=== PATIENT | female | born 1950 | race Caucasian/White ===

== ENCOUNTER 2020-08-02 07:48 | Outpatient (CLI) | payer MEDICARE, SELFPAY ==
--- NOTE | 2020-08-02 07:57 | USCV_ITS ---
uY Bruce Age: 70 Gender: F : 1950 Exam Date: 08/02/2020 08:12 Ordering Phys: Elicia Pink APN Technologist: Moira Philippe Exam Location: [facility] [place] Indication: BRUIT ON LT Risk Factors: Unknown Previous Vascular Surgery: None Right Brachial BP: / Left Brachial BP: / Right Left Velocity (cm/s) Spectral Plaque Velocity (cm/s) Spectral Plaque Syst/Diast Broadening Syst/Diast Broadening 55.50/ 16.80 Prox CCA 75.00 / 17.60 50.90/ 12.90 Mid CCA 49.30 / 10.50 50.90/ 14.60 Distal CCA 56.50 / 14.50 27.30/ 11.70 Prox ICA 59.80 / 11.80 48.30/ 13.30 Mid ICA 63.80 / 23.00 49.50/ 13.30 Distal ICA 57.20 / 15.10 39.90 ECA 67.00 0.97 ICA/CCA 1.29 Antegrade Vertebral Antegrade 44.70/ 12.70 cm/s 23.70/ 6.60 cm/s Tri Subclavian Tri 64.70 115.8 0 FINDINGS Minimal plaques at the bifurcations bilaterally Intimal thickening in the common carotid arteries bilaterally Antegrade flow in the vertebral arteries bilaterally Normal Doppler flow signals in the subclavian arteries bilaterally CONCLUSIONS Minimal plaques bilaterally at the bifurcations and proximal internal carotid arteries Intimal thickening in the common carotid arteries bilaterally. No significant stenosis, based on the above findings Dr Lobito Jones MD FAC (Electronically Signed) Final Date: 02 August 2020 14:54 S
--- NOTE | 2020-08-02 08:11 | USCV_ITS ---
Yu Bruce Age: 70 Gender: F : 1950 Exam Date: 08/02/2020 08:38 Ordering Phys: Elicia Pink APN Technologist: Moira Philippe Exam Location: [facility] [place] Indication: MV REPAIR BP: 123 / 74 HR: 62 Rhythm: Sinus Technical Quality: Adequate MEASUREMENTS (Male / Female) Normal Values 2D ECHO LV Diastolic Diameter PLAX 4.4 cm 4.2 - 5.9 / 3.9 - 5.3 cm LV Systolic Diameter PLAX 3.6 cm LV Chamber Size 4.2 cm IVS Diastolic Thickness 1.2 cm 0.6 - 1.0 / 0.6 - 0.9 cm IVS Systolic Thickness 1.4 cm LVPW Diastolic Thickness 1.3 cm 0.6 - 1.0 / 0.6 - 0.9 cm LVPW Systolic Thickness 1.6 cm RV Chamber Size 3.4 cm LVOT Diameter 3.0 cm LV Ejection Fraction 2D Teich 38.0 % LV Ejection Fraction MOD 2C 67.4 % LV Ejection Fraction 2C AL 66.7 % LA Diameter 3.3 cm LA Width 3.7 cm LA Height 5.5 cm RA Width 5.1 cm RA Height 5.0 cm Aorta at Sinotubular Diameter 3.1 cm M-MODE LV Diastolic Diameter MM 3.8 cm 4.2 - 5.9 / 3.9 - 5.3 cm LV Systolic Diameter MM 2.4 cm LV Ejection Fraction MM Teich 67.7 % IVS Diastolic Thickness MM 0.8 cm 0.6 - 1.0 / 0.6 - 0.9 cm IVS Systolic Thickness MM 1.3 cm LVPW Diastolic Thickness MM 0.9 cm 0.6 - 1.0 / 0.6 - 0.9 cm LVPW Systolic Thickness MM 1.4 cm Aortic Annulus Diameter 3.0 cm LA Ao Ratio MM 1.2 MV E Point Septal Separation 0.9 cm DOPPLER AV Peak Velocity 182.0 cm/s LVOT Peak Velocity 66.0 cm/s AV Area Cont Eq vti 3.5 cm squared AV Area Cont Eq pk 2.6 cm squared MV Area PHT 3.1 cm squared Mitral E to A Ratio 2.2 MV E' Velocity 100.5 cm/s Mitral E to MV E' Ratio 17.8 Mitral E to LV E' Lateral Ratio 14.6 Mitral E to LV E' Septal Ratio 22.9 TR Peak Velocity 365.0 cm/s TR Peak Gradient 53.3 mmHg TR Mean Velocity 242.3 cm/s TR Mean Gradient 27.6 mmHg TR Velocity Time Integral 140.5 cm TV Peak E Velocity 77.0 cm/s Right Atrial Pressure 10.0 mmHg Pulmonary Artery Systolic Pressu 63.3 mmHg PV Peak Velocity 55.0 cm/s RV Acceleration Time 0.1 s RV Ejection Time 0.4 s RV AcT/ET 0.3 FINDINGS Left Ventricle Diffuse hypokinesis left ventricle with ejection fraction around 45-50%.Grade III/IV diastolic dysfunction (restrictive filling pattern), severely elevated filling pressures. Right Ventricle Normal right ventricular size and systolic function, RVSP 63.3 mmHg. Right Atrium Mildly increased right atrial size. Left Atrium Mildly increased left atrial size. Mitral Valve Possible mitral annular ring appears to be well placed. Minimally thickened mitral valve.mild mitral valve regurgitation. Aortic Valve Thickened aortic valve. Trace aortic valve regurgitation. Tricuspid Valve [id number]-[id number]-waepow tricuspid valve regurgitation. Estimated pulmonary artery peak systolic pressure of 63 mmHg. Pulmonic Valve Pulmonic valve not well visualized. Pericardium Normal pericardium without effusion. Aorta Normal aortic annulus size. CONCLUSIONS Diffuse hypokinesis left ventricle with ejection fraction around 45-50%. Grade III/IV diastolic dysfunction (restrictive filling pattern), severely elevated filling pressures. Mild biatrial enlargement. Possible mitral annular ring appears to be well placed. Minimally thickened mitral valve. [id number]-lorvea tricuspid valve regurgitation. Estimated pulmonary artery peak systolic pressure of 63 mmHg. Mild mitral valve regurgitation. There is no pericardial effusion. There are no intracardiac masses. There is no pericardial effusion. There are no intracardiac masses. No previous study is available for comparison. Dr Lobito Jones MD [facility] (Electronically Signed) Final Date: 02 August 2020 14:49 S
== END 2020-08-02 07:49 | disposition home or self-care (01) ==
LOC: US 07:50
PROVIDERS: PCP Nurse Practitioner; Visit Provider Nurse Practitioner
DX: R09.89 Other specified symptoms and signs involving the circulatory and respiratory systems (principal); I08.1 Rheumatic disorders of both mitral and tricuspid valves; I65.23 Occlusion and stenosis of bilateral carotid arteries
CPT/HCPCS: 93306; 93880

== ENCOUNTER → 2020-08-07 15:26 | Outpatient (BNVA) | payer MEDICARE, SELFPAY | PROVIDERS: PCP Nurse Practitioner; Referring Provider Nurse Practitioner; Visit Provider Internal Medicine Cardiovascular Disease | DX: I50.33 Acute on chronic diastolic (congestive) heart failure (principal); R06.02 Shortness of breath; I27.20 Pulmonary hypertension, unspecified | CPT/HCPCS: 80048; 83880 ==

== ENCOUNTER 2020-11-12 09:52 | Outpatient (CLI) | payer MEDICARE, SELFPAY ==
--- NOTE | 2020-11-12 10:01 | USCV_ITS ---
Yu Bruce Age: 70 Gender: F : 1950 Exam Date: 11/12/2020 10:12 Ordering Phys: Lobito Jones MD ([email or web address]) Technologist: Chelsie Sanches Exam Location: [facility] – [place] Indication: PULMONARY HYPERTENSION HISTORY: Lower extremity swelling. PROCEDURES: Venous duplex imaging was performed in bilateral lower extremities. The following venous structures were evaluated: common femoral vein, profunda vein, proximal portion of the greater saphenous vein, superficial femoral vein, and the popliteal vein. In addition, the posterior tibial and peroneal trunk were evaluated. Serial compression, augmentation maneuvers, and spectral Doppler flow evaluation were performed. FINDINGS: Normal 2-D Doppler and augmentation and compressibility throughout the lower extremity venous structures. Additional imaging through the proximal calf veins also reveals no thrombus. Limited evaluation of the greater saphenous vein is patent with no thrombus.. Complex cystic mass with low level echos and no vascularity measuring 3.8 x 1.6 cm in the right popliteal fossa. CONCLUSIONS No DVT bilateral lower extremities. Right popliteal fossa Paniagua's cyst. Dr. Melissa Levine DO (Electronically Signed) Final Date: 12 Nov 2020 11:34 S
== END 2020-11-12 09:53 | disposition home or self-care (01) ==
LOC: RAD 09:54
PROVIDERS: PCP Nurse Practitioner; Visit Provider Internal Medicine Cardiovascular Disease
DX: I27.20 Pulmonary hypertension, unspecified (principal); M79.89 Other specified soft tissue disorders; M71.21 Synovial cyst of popliteal space [Baker], right knee
CPT/HCPCS: 85378; 93970

== ENCOUNTER 2020-11-13 09:39 | Outpatient (CLI) | payer MEDICARE, SELFPAY ==
[2020-11-13 10:34] LABS: D Dimer 2.25 ug/mIFEU (0-0.59)
== END 2020-11-13 09:40 | disposition home or self-care (01) ==
PROVIDERS: PCP Nurse Practitioner; Visit Provider Internal Medicine Cardiovascular Disease
DX: I82.409 Acute embolism and thrombosis of unspecified deep veins of unspecified lower extremity (principal)
CPT/HCPCS: 85378

== ENCOUNTER 2020-11-25 09:24 | Outpatient (CLI) | payer MEDICARE, SELFPAY ==
--- NOTE | 2020-11-25 08:00 | NM_ITS ---
WS: [id number] NUCLEAR MEDICINE VENTILATION/PERFUSION LUNG SCAN HISTORY: I26.99 - Other pulmonary embolism without acute cor pulmonale COMPARISON: Chest radiograph TECHNIQUE: Ventilation: 31.7 mCi of Technetium 99 DTPA aerosol inhaled. Perfusion: 5.5 mCi of technetium 99m MAA IV. Mild deposition of radionuclide centrally. Lungs are hyperexpanded with heterogeneous distribution th roughout both lungs. There is also radionuclide within the GI tract. Much better perfusion as compare d to the ventilation. Heart is enlarged. Blunting of the costophrenic angles bilaterally, matched def ects. There are no unmatched wedge-shaped defects. NM/NM pul vent and perfus* [id number] IMPRESSION: Low probability pulmonary embolism.
--- NOTE | 2020-11-25 09:43 | XR_ITS ---
WS: [id number] Exam: XR chest 2V* [id number] Date/Time of Exam: 11/25/2020 10:12 AM Reason For Exam: R79.89 - Other specified abnormal findings of blood chemi... Comparison 10/14/2012. The lungs are clear and fully inflated. Signs of previous cardiac valve replacement. Epicardial lead noted along the left heart border. No pleural effusions. Heart size is normal. The mediastinum is not widened. Dextroscoliosis of the thoracic spine. Increased thoracic kyphosis. XR/XR chest 2V* [id number] IMPRESSION: 1. No acute cardiopulmonary finding.
== END 2020-11-25 09:25 | disposition home or self-care (01) ==
PROVIDERS: PCP Nurse Practitioner; Visit Provider Internal Medicine Cardiovascular Disease
DX: I26.99 Other pulmonary embolism without acute cor pulmonale (principal); R79.89 Other specified abnormal findings of blood chemistry; R06.02 Shortness of breath
CPT/HCPCS: 71046; 78014; A9540; A9567

== ENCOUNTER → 2021-10-06 13:34 | Outpatient (BNVA) | payer MEDICARE, SELFPAY | PROVIDERS: PCP Nurse Practitioner; Visit Provider Internal Medicine Cardiovascular Disease | DX: I50.33 Acute on chronic diastolic (congestive) heart failure (principal); I27.20 Pulmonary hypertension, unspecified; I42.8 Other cardiomyopathies | CPT/HCPCS: 99214 ==

== ENCOUNTER 2022-01-06 11:23 | Outpatient (CLI) | payer MEDICARE, SELFPAY ==
--- NOTE | 2022-01-06 12:00 | USCV_ITS ---
Yu Bruce Age: 71 Gender: F : 1950 Exam Date: 01/06/2022 11:57 Ordering Phys: Lobito Jones MD ([email or web address]) Technologist: LISBETH [place]am Location[place] [facility] [place] Indication: Bruit Risk Factors: Previous Vascular Surgery: Right Brachial BP: / Left Brachial BP: / Right Left Velocity (cm/s) Spectral Plaque Velocity (cm/s) Spectral Plaque Syst/Diast Broadening Syst/Diast Broadening 76.90/ 19.70 Prox CCA 77.60 / 21.00 100.00/29.10 Mid CCA 94.00 / 22.20 79.50/ 26.50 Distal CCA 79.50 / 24.80 72.65/ 17.05 Prox ICA 78.65 / 18.40 61.50/ 23.10 Mid ICA 64.90 / 24.80 53.80/ 20.50 Distal ICA 72.60 / 24.80 105.10 ECA 101.70 0.64 ICA/CCA 0.83 Antegrade Vertebral Antegrade 30.40/ 12.30 cm/s 48.70/ 17.90 cm/s Tri Subclavian Tri 68.40 94.00 FINDINGS Comparison:. 08/02/20 No significant elevation of systolic or diastolic velocities. Waveforms are normal. Mild diffuse carotid atherosclerosis. No progression of disease. Bilateral antegrade vertebral arteries. CONCLUSIONS Bilateral ICA stenosis less than 50%. Mild carotid atherosclerosis. Dr. Melissa Levine DO (Electronically Signed) Final Date: 06 January 2022 14:22 S
== END 2022-01-06 11:24 | disposition home or self-care (01) ==
PROVIDERS: PCP Nurse Practitioner; Visit Provider Internal Medicine Cardiovascular Disease
DX: I77.9 Disorder of arteries and arterioles, unspecified (principal); R09.89 Other specified symptoms and signs involving the circulatory and respiratory systems
CPT/HCPCS: 93880

== ENCOUNTER → 2022-04-01 16:34 | Outpatient (BNVA) | payer MEDICARE, SELFPAY | PROVIDERS: PCP Nurse Practitioner Family; Visit Provider Internal Medicine Cardiovascular Disease | DX: R06.02 Shortness of breath (principal); I10 Essential (primary) hypertension; I42.8 Other cardiomyopathies; I36.1 Nonrheumatic tricuspid (valve) insufficiency; I27.20 Pulmonary hypertension, unspecified; Z98.890 Other specified postprocedural states | CPT/HCPCS: 80048; 83880; 99214 ==

== ENCOUNTER → 2022-10-01 13:38 | Outpatient (BNVA) | payer MEDICARE, SELFPAY | PROVIDERS: PCP Nurse Practitioner Family; Visit Provider Internal Medicine Cardiovascular Disease | DX: R06.02 Shortness of breath (principal); I10 Essential (primary) hypertension; I42.8 Other cardiomyopathies; I36.1 Nonrheumatic tricuspid (valve) insufficiency; I27.20 Pulmonary hypertension, unspecified; Z98.890 Other specified postprocedural states | CPT/HCPCS: 80048; 83880; 99214 ==

== ENCOUNTER 2022-10-23 06:27 | Outpatient (CLI) | payer MEDICARE, SELFPAY ==
--- NOTE | 2022-10-23 07:15 | USCV_ITS ---
Yu Bruce Age: 72 Gender: F : 1950 Exam Date: 10/23/2022 07:09 Ordering Phys: Lobito Jones MD ([email or web address]) Technologist: [email or web address] [place] [facility] [place] Indication: TR/CM BP: 131 / 79 HR: 71 Rhythm: Sinus Technical Quality: Adequate MEASUREMENTS (Male / Female) Normal Values 2D ECHO LVOT Diameter 2.0 cm LV Ejection Fraction MOD 2C 52.6 % LV Ejection Fraction 2C AL 55.6 % LA Diameter 3.3 cm LA Width 4.3 cm LA Height 4.9 cm RA Width 4.2 cm RA Height 3.8 cm Aorta at Sinotubular Diameter 2.1 cm IVC Diameter 1.5 cm M-MODE Aortic Annulus Diameter 2.9 cm LA Ao Ratio MM 0.9 MV E Point Septal Separation 1.4 cm DOPPLER AV Peak Velocity 151.7 cm/s LVOT Peak Velocity 103.0 cm/s AV Area Cont Eq vti 2.1 cm squared AV Area Cont Eq pk 2.1 cm squared MV Peak Velocity 151.0 cm/s MV Area PHT 2.9 cm squared Mitral E to A Ratio 1.0 MV E' Velocity 77.5 cm/s Mitral E to MV E' Ratio 16.8 Mitral E to LV E' Lateral Ratio 13.0 Mitral E to LV E' Septal Ratio 24.1 TR Peak Velocity 266.4 cm/s TR Peak Gradient 28.4 mmHg TR Mean Velocity 256.8 cm/s TR Mean Gradient 26.7 mmHg TR Velocity Time Integral 110.2 cm TV Peak E Velocity 39.0 cm/s Right Atrial Pressure 3.0 mmHg Pulmonary Artery Systolic Pressu 31.4 mmHg PV Peak Velocity 99.0 cm/s RV Acceleration Time 0.1 s RV Ejection Time 0.3 s RV AcT/ET 0.3 FINDINGS Left Ventricle Normal left ventricular size with borderline low LV ejection fraction of 50 to 55%. Mild diffuse hypokinesia of the septum. Dyskinetic basal inferior wall segment.Grade III/IV diastolic dysfunction (restrictive filling pattern), severely elevated filling pressures. Right Ventricle The right ventricle is normal in size and function. Right Atrium Normal right atrial size. Left Atrium Moderately increased left atrial size. Mitral Valve Moderate to heavy mitral annular calcification.mild mitral valve regurgitation. Aortic Valve Trace aortic valve regurgitation. Tricuspid Valve Mild tricuspid valve regurgitation. Estimated pulmonary artery peak systolic pressure 31 mmHg Pulmonic Valve Pulmonic valve not well visualized. Pericardium No pericardial effusion. Aorta Normal aortic annulus size. IVC Normal inferior vena cava. CONCLUSIONS Normal left ventricular size with slightly diminished ejection fraction of 50 to 55%. Mild diffuse hypokinesia of the septum. Dyskinetic basal inferior wall segment.Grade III/IV diastolic dysfunction (restrictive filling pattern), severely elevated filling pressures. Moderately increased left atrial size. Moderate to heavy mitral annular calcification.mild mitral valve regurgitation. Trace aortic valve regurgitation. Mild tricuspid valve regurgitation. There is no pericardial effusion. There are no intracardiac masses. Estimated pulmonary artery peak systolic pressure 31 mmHg. The PA pressure estimation could be misleading because of the poor Doppler signals. There is no pericardial effusion. There are no intracardiac masses. Compared to the previous study from 08/02/2020 there appears to be some improvement in the LV ejection fraction. Because of poor Doppler signals PA pressure could not be estimated properly. Dr Lobito Jones MD [facility] (Electronically Signed) Final Date: 24 October 2022 17:46 S
== END 2022-10-23 06:28 | disposition home or self-care (01) ==
LOC: RAD 06:32
PROVIDERS: PCP Nurse Practitioner Family; Visit Provider Internal Medicine Cardiovascular Disease
DX: I42.8 Other cardiomyopathies (principal); R06.09 Other forms of dyspnea; I51.9 Heart disease, unspecified; I08.1 Rheumatic disorders of both mitral and tricuspid valves
CPT/HCPCS: 80048; 83880; 93306; 99214

== ENCOUNTER 2022-11-03 07:49 | Outpatient (CLI) | payer MEDICARE, SELFPAY ==
--- NOTE | 2022-11-03 | ECG_ITS ---
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 Interpretive Statements NAME OF STUDY: LEXISCAN SESTAMIBI STRESS TEST INDICATION: Cardiomyopathy, PROCEDURE: At the baseline, the EKG revealed normal sinus rhythm with a left bundle branch block pattern. The baseline heart was 69 bpm with a blood pressue of 126/78 mm of Hg Lexiscan was infused over a period of 20 seconds. A total of 0.4 milligrams of Lexiscan was infused. The stress phase was continued for a total of 5 minutes. Heart rate at the end of the stress phase was 82 bpm with a blood pressure 147/75 mm of Hg. The EKG at the peak infusion revealed no significant changes. Sestamibi was injected 20 seconds after the Lexiscan infusion. Heart rate at the end of the recovery phase was 80 bpm with a blood pressure of 138/72 mm of Hg. CONCLUSION: 1. The EKG response to Lexiscan infusion is uninterpretable due to the underlying left bundle branch block pattern 2. No LexiScan induced chest pain or cardiac arrhythmia 3. Normal blood pressure and heart rate response 4. Sestamibi/sestamibi perfusion scan pending; see separate report. Electronically Signed On 11-05-2022 21:35:41 CDT by Lobito Jones M.D. [id number]
[2022-11-03 07:58] VITALS: BMI 42.0
--- NOTE | 2022-11-03 08:26 | NMCV_ITS ---
NM nicolasa perf SPECT r/s* [id number] Yu Bruce Age: 72 Gender: F : 1950 Exam Date: 11/03/2022 09:25 Ordering Phys: Lobito Jones MD ([email or web address]) Technologist: RIP Frank Exam Location: [facility] Indications: CORONARY ANGIOPLASTY STATUS; CARDIOMYOPATHY STRESS TEST Please see separate stress test report in [facility] for full findings IMAGE PROTOCOL Rest/Stress 1 Lexiscan Day Radiopharmaceutical Dose (mCi) Administration Site Administered by Rest: Tc-99m 11.0 IV RIP Frank Sestamibi Stress:Tc-99m 32.7 IV RIP Luo Sestamibi Rest: 03-Nov-2022 60 Discovery 630 Stress: 03-Nov-2022 30 Discovery 630 0.4mg Lexiscan. Images obtained in supine and prone position. SPECT RESULTS Technical Quality: Excellent Raw Data Analysis: Normal Image Corrections: No attenuation or motion correction applied Summed Stress Score: 1 Summed Rest Score: 8 Summed Difference Score: 1 PERFUSION FINDINGS Patchy areas of slightly decreased tracer uptake were noted in the inferior, mid and apical anterior wall and apical regions. Has a small area of reversible defect was noted in the apical inferior region FUNCTIONAL RESULTS (calculated via Gated SPECT) Stress Image LV EF (%): 47 Stress EDV (mL):118 TID: 0.99 Stress ESV (mL):62 FUNCTIONAL FINDINGS: Segmental wall motion analysis revealed diffuse hypokinesia of the septum and LV apex IMPRESSIONS 1. Myocardial perfusion imaging revealing patchy areas of slightly decreased persistent tracer uptake in the inferior wall, anterior wall and apical regions with a subtle area of reversibility in the apical inferior region, suggesting myocardial scarring in the distribution of all 3 coronary arteries with a subtle area of ischemia in the distribution of the distal RCA. 2. Slightly diminished left ventricular ejection fraction of 47%. 3. LV wall motion analysis revealing diffuse hypokinesia of the septum and LV apex. 4. Mildly dilated LV cavity with an end-systolic volume of 62 mL No similar previous studies are available for comparison Dr Lobito Jones MD [facility] (Electronically Signed) Final Date: 04 Nov 2022 00:38 S
[2022-11-03] MEDS: regadenoson 0.4 Mg/5 ml Syringe IVP (10:02)
[2022-11-03 10:21] VITALS: BP 138/72; PULSE 80
== END 2022-11-03 07:50 | disposition home or self-care (01) ==
LOC: CDL 07:58
PROVIDERS: PCP Nurse Practitioner Family; Visit Provider Internal Medicine Cardiovascular Disease
DX: I42.9 Cardiomyopathy, unspecified (principal)
CPT/HCPCS: 36415; 78452; 93017; 96374; A9500; J2785

== ENCOUNTER 2022-12-09 14:30 | Outpatient (CLI) | payer MEDICARE, OTHER, SELFPAY ==
--- NOTE | 2022-12-09 14:39 | MM_ITS ---
WS: [id number] BILATERAL 3D TOMOSYNTHESIS DIGITAL SCREENING MAMMOGRAPHY WITH CAD CLINICAL INFORMATION: SCREENING HISTORY: Screening mammogram. No current complaints. COMPARISON: 2006 TECHNIQUE: Bilateral CC and MLO views. FINDINGS: Scattered fibroglandular densities bilaterally. No suspicious focal mass, asymmetry, calcifications, or architectural distortion. No evidence of malignancy. Incidental punctate calcifications LEFT breas t. Vascular calcification. MM/[place] [id number] IMPRESSION: BI-RADS: 2-Benign FOLLOW UP: 1 Year Follow-up Recommend return to annual screening mammography.
--- NOTE | 2022-12-09 15:15 | XR_ITS ---
WS: [id number] DEXA (DUAL ENERGY X-RAY ABSORPTIOMETRY) Bone mineral density was performed using a [employer] machine. HISTORY: BONE DENSITY COMPARISON: None available. Lumbar spine BMD (L1-L4): 0.898 T score: -2.5 Z score: -2.0 Total hip BMD: Left: 0.602 g/cm2. T score: -3.2 Z score: -2.4 Right: 0.621 g/cm2. T score: -3.1 Z score: -2.3 10 year probability of a major osteoporotic fracture is 17.6%. XR/XR DEXA axial skeleton* [id number] IMPRESSION: OSTEOPOROSIS based upon the WHO classification for females.
== END 2022-12-09 14:31 | disposition home or self-care (01) ==
PROVIDERS: PCP Nurse Practitioner Family; Visit Provider Nurse Practitioner Family
DX: Z12.31 Encounter for screening mammogram for malignant neoplasm of breast (principal); Z78.0 Asymptomatic menopausal state; M81.0 Age-related osteoporosis without current pathological fracture
CPT/HCPCS: 77063; 77067; 77080

== ENCOUNTER → 2023-04-08 13:31 | Outpatient (BNVA) | payer MEDICARE, SELFPAY | PROVIDERS: PCP Nurse Practitioner Family; Visit Provider Internal Medicine Cardiovascular Disease | DX: I42.8 Other cardiomyopathies (principal); Z98.890 Other specified postprocedural states; I36.1 Nonrheumatic tricuspid (valve) insufficiency; I27.20 Pulmonary hypertension, unspecified; I13.0 Hypertensive heart and chronic kidney disease with heart failure and stage 1 through stage 4 chronic kidney disease, or unspecified chronic kidney disease; N18.9 Chronic kidney disease, unspecified; I50.9 Heart failure, unspecified | CPT/HCPCS: 99214 ==

== ENCOUNTER → 2023-11-01 13:52 | Outpatient (BNVA) | payer MEDICARE, SELFPAY | PROVIDERS: PCP Nurse Practitioner Family; Visit Provider Internal Medicine Cardiovascular Disease | DX: Z98.890 Other specified postprocedural states (principal); I36.1 Nonrheumatic tricuspid (valve) insufficiency; I42.8 Other cardiomyopathies; I13.0 Hypertensive heart and chronic kidney disease with heart failure and stage 1 through stage 4 chronic kidney disease, or unspecified chronic kidney disease; N18.9 Chronic kidney disease, unspecified; I50.9 Heart failure, unspecified | CPT/HCPCS: 99214 ==

== ENCOUNTER → 2024-05-03 11:01 | Outpatient (BNVA) | payer MEDICARE, SELFPAY | PROVIDERS: PCP Nurse Practitioner Family; Visit Provider Internal Medicine Cardiovascular Disease | DX: R06.02 Shortness of breath (principal) | CPT/HCPCS: 36415; 80048; 83880; 99214 ==

== ENCOUNTER 2024-10-03 05:00 | Outpatient (RCR) | payer MEDICARE, SELFPAY | END 2024-11-01 23:59 | disposition home or self-care (01) | LOC: SPT 05:00 | PROVIDERS: PCP Nurse Practitioner Family; Visit Provider Nurse Practitioner Family | DX: R42 Dizziness and giddiness (principal); Z98.890 Other specified postprocedural states; I42.8 Other cardiomyopathies; I10 Essential (primary) hypertension | CPT/HCPCS: 95992; 97161; 99214 ==

== ENCOUNTER 2024-10-03 11:15 | Observation (INO) | payer MEDICARE, SELFPAY ==
[2024-10-03] VITALS (20 sets, daily range): BP systolic 140–196; BP diastolic 75–130; PULSE 67–104; RESP 16–21; TEMP 36.6; O2SAT 91–97; BMI 42.0
[2024-10-03 12:20] LABS: Basophils % 0.8 %; Eosinophils # 0.2 10^3/uL (0.0-0.8); Eosinophils % 2.8 %; Hematocrit 41.2 % (36-47); Lymphocytes # 1.5 10^3/uL (0.8-4.8); Lymphocytes % 27.3 %; Mean Corpuscular HGB Conc 31.8 g/dL (30-55); Mean Corpuscular Hemoglobin 29.7 pg (27-33); Mean Corpuscular Volume 93.4 fl (85-98); Mean Platelet Volume 13.9 fL (7.4-10.4); Monocytes # 0.5 10^3/uL (0.2-0.9); Monocytes % 9.2 %; Neutrophils # 3.17 10^3/uL (1.8-7.7); Neutrophils % 59.7 %; Nucleated Red Blood Cells % 0 %; Platelet Count 123 10^3/cmm (157-399); Red Blood Count 4.41 10^6/uL (3.85-5.65); Red Cell Distribution Width 13.2 % (12.1-15.1); White Blood Count 5.31 10^3/uL (3.29-11.43)
[2024-10-03 12:31] LABS: INR 0.83 (0.8-1.2)
[2024-10-03 12:35] LABS: Alanine Aminotransferase 8 U/L (0-33); Albumin Level 4.4 g/dL (3.5-5.2); Alkaline Phosphatase 92 U/L (35-105); Anion Gap 15.5 (5-19); Aspartate Amino Transferase 18 U/L (0-32); Blood Urea Nitrogen 49 mg/dL (8-23); Calcium 9.4 mg/dL (8.5-10.5); Carbon Dioxide 29 mmol/L (22-29); Chloride 100 mmol/L (98-107); Creatinine Clr Calc Pharmacy 30.6051; Globulin 2.9 g/dL (1.3-4.6); Glucose 103 mg/dL (65-115); Osmolality Calculated 303 mOsm/kg (285-295); Potassium 4.5 mmol/L (3.5-5.1); Sodium 140 mmol/L (136-145); Total Bilirubin 0.4 mg/dL (0.15-1.2); Total Protein 7.3 g/dL (6.6-8.7)
--- NOTE | 2024-10-03 12:42 | ECG_ITS ---
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 Measurements Intervals [place] Rate: 72 P: 40 DE: 143 QRS: 12 QRSD: 171 T: 124 QT: 406 QTc: 445 Interpretive Statements SINUS RHYTHM WITH OCCASIONAL SUPRAVENTRICULAR PREMATURE COMPLEXES LEFT BUNDLE BRANCH BLOCK [120+ ms QRS DURATION, 80+ ms Q/S IN V1/V2, 85+ ms R IN I/aVL/V5/V6] No previous ECG available for comparison Electronically Signed On 10-07-2024 18:28:26 CDT by Waldo Valencia M.D. [email or web address] [id number]
--- NOTE | 2024-10-03 13:18 | W.ED.DIZZY ---
Documented by User: Abel Liu, 10/06/24 05:50 HPI - Dizziness General: Chief Complaint: Dizziness Stated Complaint: dizzy, nausea, possible medication reaction Time Seen by Provider: 10/03/24 12:36 History of Present Illness: HPI Narrative: 74-year-old female presents emergency room complaining of dizziness for the last 3 days. She notes that whenever she moves her head to the left or right she gets severe dizziness with true vertiginous-like symptoms. She also notices it to a lesser extent when she looks down or looks up. No drainage from the ears. Symptoms are intense enough to give nausea but no vomiting. She had gotten a different brand of isosorbide recently when she was concerned that may be the cause of it so she did not take her isosorbide last night. She is otherwise on Lasix and carvedilol. She is taking all of those medications as previously scheduled. Initial EKG shows a left bundle branch block which has been present at least since November 2022 as noted on her stress test that done at that time. Associated symptoms: Denies chest pain, chills, headache(s) or nasal congestion Related Data Home Medications ?Medication ?Instructions ?Recorded ?Confirmed allopurinol 100 mg tablet 100 mg PO DAILY 08/02/20 10/03/24 aspirin 325 mg tablet 325 mg PO DAILY 08/02/20 10/03/24 levothyroxine 50 mcg capsule 50 mcg PO DAILY 08/02/20 10/03/24 pantoprazole 40 mg tablet,delayed 40 mg PO DAILY 08/02/20 10/03/24 release Previous Rx's ?Medication ?Instructions ?Recorded carvedilol 6.25 mg tablet 6.25 mg PO BID 30 days #60 tabs 11/23/22 nitroglycerin 0.4 mg sublingual 0.4 mg sublingual Q5M PRN chest 11/26/22 tablet (Nitrostat) pain #90 tabs isosorbide mononitrate 120 mg 120 mg PO DAILY #90 tabs 10/03/24 tablet,extended release 24 hr furosemide 40 mg tablet 40 mg PO EVERY OTHER DAY 15 days 10/05/24 #0 tabs meclizine 25 mg tablet 25 mg PO TID PRN dizziness 15 days 10/05/24 #45 tabs Allergies Allergy/AdvReac Type Severity Reaction Status Date / Time No Known Allergies Allergy Verified 05/03/24 10:00 Review of Systems Const: Denies: fever(s) or chills ENMT: Denies: throat pain, ear or mastoid pain, nasal discharge or nasal congestion Card: Denies: chest pain Resp: Denies: dyspnea GI: Denies: abdominal pain : Denies: dysuria, urinary frequency or urinary urgency Musc: Denies: neck pain or back pain Skin/Breast: Denies: rash Neuro: Reports: vertigo; Denies: headache(s) PFSH ED PFSH: Medical History Hx of cardiomyopathy Hx of congestive heart failure Bruit of left carotid artery History of back pain Hx of carpal tunnel syndrome Hx of chronic kidney disease Hx of diplopia Glomerulonephritis Hx of gout [place]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 Hx of hypercholesterolemia History of hypertension History of hypothyroidism Hx of insomnia Hx of left bundle branch block Hx of mitral valve insufficiency History of renal insufficiency Family hx of hypertension Family history of heart disease History of shingles Surgical History Hx of cholecystectomy Hx of mitral valve repair History of open heart surgery Family History Mother CAD (coronary artery disease) Hypertension Father Hypertension Cancer Denies family history of Diabetes Clotting disorder Dementia Chronic kidney disease (CKD) Suicide Anesthesia complication Bleeding disorder Lung disease Stroke Social History Smoking and tobacco/nicotine status: never used tobacco/nicotine Second hand smoke exposure: Yes Alcohol intake: never Substance/Drug Use: never Lives independently: Yes Household members: spouse Marital status: service: No Current occupational status: retired Pets and animals: No Do you think of yourself as: Straight/Heterosexual Current gender identity: Female Physical Exam Const: COMMON NORMALS: no acute distress GENERAL APPEARANCE: cooperative ORIENTATION/CONSCIOUSNESS: Yes awake, Yes oriented to person, Yes oriented to place and Yes oriented to time HENMT: COMMON NORMALS: normocephalic, atraumatic, hearing grossly normal bilaterally, external ears normal, EAC's normal, TM's normal bilaterally and Normal nasal mucous membranes and turbinates present HEAD & SCALP: normocephalic and atraumatic NOSE: Normal nasal mucous membranes and turbinates present EXTERNAL EAR: Yes external ears normal EXTERNAL AUDITORY CANAL: EAC's normal TYMPANIC MEMBRANE: TM's normal bilaterally Eye: COMMON NORMALS: Equal, round and reactive pupils present, EOMs intact bilaterally, conjunctivae normal and no scleral icterus CONJUNCTIVA: Yes conjunctivae normal PUPIL: Yes Equal, round and reactive pupils present Neck/C-Spine: COMMON NORMALS: full ROM, no lymphadenopathy, supple and no JVD Lymph: LYMPHATIC: no lymphadenopathy noted and no lymphedema noted Resp: COMMON NORMALS: normal respiratory effort, No retractions, No use of accessory muscles and clear to auscultation bilaterally AUSCULTATION: clear to auscultation bilaterally Cardio: COMMON NORMALS: no JVD, regular rate, regular rhythm and No murmurs present (Cardio) RATE: regular rate RHYTHM: regular rhythm GI: COMMON NORMALS: Soft to palpation and No hepatosplenomegaly present AUSCULTATION: Yes normoactive bowel sounds PALPATION: Yes Soft to palpation, No Tenderness to palpation present (GI), No Guarding due to palpation present (GI) and Yes No hepatosplenomegaly present Extremity: COMMON NORMALS: normal to inspection, capillary refill normal, no clubbing, cyanosis or edema, no calf tenderness and no pedal edema Neuro: SENSORIUM/ORIENTATION: Yes oriented to person, Yes oriented to place and Yes oriented to time OTHER: Reproducible vertiginous symptoms with movement of her head. Abbreviated NIH evaluation no focal neurologic deficits. No positive findings Skin: COMMON NORMALS: no rashes or lesions noted GENERAL SKIN EXAM: no rashes or lesions noted Course Vital Signs: Vital signs: Vital Signs Temperature 97.6 F 10/05/24 15:27 Pulse Rate 60 10/05/24 15:27 Respiratory Rate 16 10/05/24 15:27 Blood Pressure 113/70 10/05/24 15:27 Pulse Oximetry 94 10/05/24 15:27 Oxygen Delivery Me thod Room Air 10/05/24 11:13 MDM - Dizziness Medical Decision Making On initial exam patient has clearly reproducible vertiginous symptoms consistent with benign paroxysmal positional vertigo. When she lays still her symptoms resolve when she moves or turns her head particular to the left and right reproduces her symptoms. We have treated this we are checking other lab work her blood pressure began to rise to multiple various treatments for her blood pressure despite this it continues to rise. At change of shift discussed with oncoming physician Dr. Lyon will likely place on observation for blood pressure control. Patient care transitioned me at shift change. Her blood pressures continue to rise despite treatment. It was decided to observe her overnight and see if we can get her blood pressure down. Lab Data 10/05/24 05:33 10/05/24 05:[address] 10/03/24 15:03 IMPRESSION: 1. No acute intracranial hemorrhage or edema. 2. Moderate cerebral and cerebellar atrophy with mild progression since 2018. 3. No skull fracture. Cervical Spine CT 10/03/24 15:37 IMPRESSION: No acute cervical spine fracture. Mild cervical spondylosis. Laboratory Results WBC 5.31 10^3/uL (3.29-11.43) 10/03/24 12:06 RBC 4.41 10^6/uL (3.85-5.65) 10/03/24 12:06 Hgb 13.10 g/dL (11.27-16.99) 10/03/24 12:06 Hct 41.2 % (36-47) 10/03/24 12:06 MCV 93.4 fl (85-98) 10/03/24 12:06 MCH 29.7 pg (27-33) 10/03/24 12:06 MCHC 31.8 g/dL (30-55) 10/03/24 12:06 RDW 13.2 % (12.1-15.1) 10/03/24 12:06 Plt Count 123 10^3/cmm (157-399) L 10/03/24 12:06 MPV 13.9 fL (7.4-10.4) H 10/03/24 12:06 Neut % (Auto) 59.7 % 10/03/24 12:06 Lymph % (Auto) 27.3 % 10/03/24 12:06 [place] % (Auto) 9.2 % 10/03/24 12:06 Eos % (Auto) 2.8 % 10/03/24 12:06 Baso % (Auto) 0.8 % 10/03/24 12:06 Neut # (Auto) 3.17 10^3/uL (1.8-7.7) 10/03/24 12:06 Lymph # (Auto) 1.5 10^3/uL (0.8-4.8) 10/03/24 12:06 [place] # (Auto) 0.5 10^3/uL (0.2-0.9) 10/03/24 12:06 Eos # (Auto) 0.2 10^3/uL (0.0-0.8) 10/03/24 12:06 Baso # (Auto) 0.0 10^3/uL (0.0-0.1) 10/03/24 12:06 Nucleated RBC % (auto) 0 % 10/03/24 12:06 Nucleated RBCs # 0.0 /100WBC 10/03/24 12:06 PT 12.00 SECONDS (12.1-14.9) L 10/03/24 12:06 INR 0.83 (0.8-1.2) 10/03/24 12:06 Sodium 140 mmol/L (136-145) 10/03/24 12:06 Potassium 4.5 mmol/L (3.5-5.1) 10/03/24 12:06 Chloride 100 mmol/L (98-107) 10/03/24 12:06 Carbon Dioxide 29 mmol/L (22-29) 10/03/24 12:06 Anion Gap 15.5 (5-19) 10/03/24 12:06 BUN 49 mg/dL (8-23) H 10/03/24 12:06 Creatinine 1.8 mg/dL (0.5-0.9) H 10/03/24 12:06 GFR Calculation Not Reportable 10/03/24 12:06 Glucose 103 mg/dL (65-115) 10/03/24 12:06 Calculated Osmolality 303 mOsm/kg (285-295) H 10/03/24 12:06 Calcium 9.4 mg/dL (8.5-10.5) 10/03/24 12:06 Total Bilirubin 0.4 mg/dL (0.15-1.2) 10/03/24 12:06 AST 18 U/L (0-32) 10/03/24 12:06 ALT 8 U/L (0-33) 10/03/24 12:06 Alkaline Phosphatase 92 U/L (35-105) 10/03/24 12:06 Troponin T Baseline 28 ng/L (0-10) H 10/03/24 19:17 Total Protein 7.3 g/dL (6.6-8.7) 10/03/24 12:06 Albumin 4.4 g/dL (3.5-5.2) 10/03/24 12:06 Globulin 2.9 g/dL (1.3-4.6) 10/03/24 12:06 Discharge Plan Discharge Patient Disposition: Placed in Observation Admit Provider: Juanis Vera Clinical Impression: Accelerated hypertension, Vertigo Discharge Diet: Usual diet Discharge Activity: Resume usual activity Coding Level of Care Code ED Human Resources Benefits Administrator for Chg Fwd Documented by User: Leanna Lyon MD 10/03/24 19:56 HPI - Dizziness General: Chief Complaint: Dizziness Stated Complaint: dizzy, nausea, possible medication reaction Time Seen by Provider: 10/03/24 12:36 Related Data Home Medications ?Medication ?Instructions ?Recorded ?Confirmed allopurinol 100 mg tablet 100 mg PO DAILY 08/02/20 10/03/24 aspirin 325 mg tablet 325 mg PO DAILY 08/02/20 10/03/24 levothyroxine 50 mcg capsule 50 mcg PO DAILY 08/02/20 10/03/24 pantoprazole 40 mg tablet,delayed 40 mg PO DAILY 08/02/20 10/03/24 release Previous Rx's ?Medication ?Instructions ?Recorded carvedilol 6.25 mg tablet 6.25 mg PO BID 30 days #60 tabs 11/23/22 nitroglycerin 0.4 mg sublingual 0.4 mg sublingual Q5M PRN chest 11/26/22 tablet (Nitrostat) pain #90 tabs isosorbide mononitrate 120 mg 120 mg PO DAILY #90 tabs 10/03/24 tablet,extended release 24 hr furosemide 40 mg tablet 40 mg PO EVERY OTHER DAY 15 days 10/05/24 #0 tabs meclizine 25 mg tablet 25 mg PO TID PRN dizziness 15 days 10/05/24 #45 tabs Allergies Allergy/AdvReac Type Severity Reaction Status Date / Time No Known Allergies Allergy Verified 05/03/24 10:00 [facility] ED PFSH: Medical History Hx of cardiomyopathy Hx of congestive heart failure Bruit of left carotid artery History of back pain Hx of carpal tunnel syndrome Hx of chronic kidney disease Hx of diplopia Glomerulonephritis Hx of gout [place]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 Hx of hypercholesterolemia History of hypertension History of hypothyroidism Hx of insomnia Hx of left bundle branch block Hx of mitral valve insufficiency History of renal insufficiency Family hx of hypertension Family history of heart disease History of shingles Surgical History Hx of cholecystectomy Hx of mitral valve repair History of open heart surgery Family History Mother CAD (coronary artery disease) Hypertension Father Hypertension Cancer Denies family history of Diabetes Clotting disorder Dementia Chronic kidney disease (CKD) Suicide Anesthesia complication Bleeding disorder Lung disease Stroke Social History Smoking and tobacco/nicotine status: never used tobacco/nicotine Second hand smoke exposure: Yes Alcohol intake: never Substance/Drug Use: never Lives independently: Yes Household members: spouse Marital status: service: No Current occupational status: retired Pets and animals: No Do you think of yourself as: Straight/Heterosexual Current gender identity: Female Course Vital Signs: Vital signs: Vital Signs Temperature 97.6 F 10/05/24 15:27 Pulse Rate 60 10/05/24 15:27 Respiratory Rate 16 10/05/24 15:27 Blood Pressure 113/70 10/05/24 15:27 Pulse Oximetry 94 10/05/24 15:27 Oxygen Delivery Me thod Room Air 10/05/24 11:13 MDM - Dizziness Medical Decision Making Patient care transitioned me at shift change. Her blood pressures continue to rise despite treatment. It was decided to observe her overnight and see if we can get her blood pressure down. Lab Data 10/05/24 05:33 10/05/24 05:[address] 10/03/24 15:03 IMPRESSION: 1. No acute intracranial hemorrhage or edema. 2. Moderate cerebral and cerebellar atrophy with mild progression since 2019. 3. No skull fracture. Cervical Spine CT 10/03/24 15:37 IMPRESSION: No acute cervical spine fracture. Mild cervical spondylosis. Laboratory Results WBC 5.31 10^3/uL (3.29-11.43) 10/03/24 12:06 RBC 4.41 10^6/uL (3.85-5.65) 10/03/24 12:06 Hgb 13.10 g/dL (11.27-16.99) 10/03/24 12:06 Hct 41.2 % (36-47) 10/03/24 12:06 MCV 93.4 fl (85-98) 10/03/24 12:06 MCH 29.7 pg (27-33) 10/03/24 12:06 MCHC 31.8 g/dL (30-55) 10/03/24 12:06 RDW 13.2 % (12.1-15.1) 10/03/24 12:06 Plt Count 123 10^3/cmm (157-399) L 10/03/24 12:06 MPV 13.9 fL (7.4-10.4) H 10/03/24 12:06 Neut % (Auto) 59.7 % 10/03/24 12:06 Lymph % (Auto) 27.3 % 10/03/24 12:06 [place] % (Auto) 9.2 % 10/03/24 12:06 Eos % (Auto) 2.8 % 10/03/24 12:06 Baso % (Auto) 0.8 % 10/03/24 12:06 Neut # (Auto) 3.17 10^3/uL (1.8-7.7) 10/03/24 12:06 Lymph # (Auto) 1.5 10^3/uL (0.8-4.8) 10/03/24 12:06 [place] # (Auto) 0.5 10^3/uL (0.2-0.9) 10/03/24 12:06 Eos # (Auto) 0.2 10^3/uL (0.0-0.8) 10/03/24 12:06 Baso # (Auto) 0.0 10^3/uL (0.0-0.1) 10/03/24 12:06 Nucleated RBC % (auto) 0 % 10/03/24 12:06 Nucleated RBCs # 0.0 /100WBC 10/03/24 12:06 PT 12.00 SECONDS (12.1-14.9) L 10/03/24 12:06 INR 0.83 (0.8-1.2) 10/03/24 12:06 Sodium 140 mmol/L (136-145) 10/03/24 12:06 Potassium 4.5 mmol/L (3.5-5.1) 10/03/24 12:06 Chloride 100 mmol/L (98-107) 10/03/24 12:06 Carbon Dioxide 29 mmol/L (22-29) 10/03/24 12:06 Anion Gap 15.5 (5-19) 10/03/24 12:06 BUN 49 mg/dL (8-23) H 10/03/24 12:06 Creatinine 1.8 mg/dL (0.5-0.9) H 10/03/24 12:06 GFR Calculation Not Reportable 10/03/24 12:06 Glucose 103 mg/dL (65-115) 10/03/24 12:06 Calculated Osmolality 303 mOsm/kg (285-295) H 10/03/24 12:06 Calcium 9.4 mg/dL (8.5-10.5) 10/03/24 12:06 Total Bilirubin 0.4 mg/dL (0.15-1.2) 10/03/24 12:06 AST 18 U/L (0-32) 10/03/24 12:06 ALT 8 U/L (0-33) 10/03/24 12:06 Alkaline Phosphatase 92 U/L (35-105) 10/03/24 12:06 Troponin T Baseline 28 ng/L (0-10) H 10/03/24 19:17 Total Protein 7.3 g/dL (6.6-8.7) 10/03/24 12:06 Albumin 4.4 g/dL (3.5-5.2) 10/03/24 12:06 Globulin 2.9 g/dL (1.3-4.6) 10/03/24 12:06 All radiology interpretation(s) finalized by discharge Discharge Plan Discharge Patient Disposition: Placed in Observation Admit Provider: Juanis Vear Clinical Impression: Accelerated hypertension, Vertigo Discharge Diet: Usual diet Discharge Activity: Resume usual activity Coding Level of Care Code ED Human Resources Benefits Administrator for Patrick Cedeño
[2024-10-03] MEDS: labetalol 5 mg/mL SDV 20mL 10 MG IVP (14:57)
[2024-10-03] MEDS: hyDRALAzine 20 mg/mL INJ 1 mL 10 MG IVP ×2 (14:58→16:52)
[2024-10-03] MEDS: isosorbide mononitrate ER 30 mg Tablet PO (14:59)
--- NOTE | 2024-10-03 15:03 | CT_ITS ---
WS: [id number] CT HEAD NONCONTRAST HISTORY: Dizziness hypertension TECHNIQUE: Contiguous axial imaging performed through the brain. Bone and soft tissue windows. Sagittal and coronal reformats reviewed. All CT scans at [facility] use at least one of these dose optimization techniques: automated exposure control; mA and/or kV adjustment per patient size (includes targeted exams where dose is matched to clinical indication); or iterative reconstruction. DLP: 1412.58 mGy.cm COMPARISON: 10/19/2018 No acute intracranial hemorrhage, midline shift or mass effect. Moderate cerebral and cerebellar atrophy with progression since 2019. No acute intracranial hemorrhage or edema. Mild small vessel ischemic disease in a periventricular distribution. Ventricles: Normal size with no hydrocephalus. No inferior displacement of the cerebellar tonsils. Paranasal sinuses: Small air-fluid level in the RIGHT maxillary sinus. Prior sinus surgery. Mastoid air cells: Well pneumatized. Calvarium and scalp: Skull is intact with no soft tissue edema or swelling. CT/CT head wo con* [id number] IMPRESSION: 1. No acute intracranial hemorrhage or edema. 2. Moderate cerebral and cerebellar atrophy with mild progression since 2019. 3. No skull fracture.
--- NOTE | 2024-10-03 15:37 | CT_ITS ---
WS: [id number] CT CERVICAL SPINE HISTORY: NECK PAIN TECHNIQUE: Contiguous 2.0 mm axial imaging performed through the entire cervical spine. Sagittal and coronal reformats also performed. All CT scans at [facility] use at least one of these dose optimization techniques: automated exposure control; mA and/or kV adjustment per patient size (includes targeted exams where dose is matched to clinical indication); or iterative reconstruction. DLP: 1412.58 mGy.cm COMPARISON: None available. Quality this examination is compromised by body habitus. Normal cervical alignment. Disc spaces are narrowed and desiccated. Facet joints are normally aligned. No fractures. Narrowing of the predental space. Lateral masses of C1 and C2 are aligned. The odontoid is intact. No central or foraminal cervical stenosis. No acute appearing disc protrusions. Paravertebral soft tissues are normal. Lung apices are clear. CT/CT cervical spin wo con* [id number] IMPRESSION: No acute cervical spine fracture. Mild cervical spondylosis.
--- NOTE | 2024-10-03 17:25 | ECG_ITS ---
[employer] Test Date: 2024-10-03 Pat Name: Yu Bruce Department: Room: 276 Gender: Female Software Development Analyst: : 1950 Requested By: Abel Goetz Order Number: [id number] Reading MD: HAMZAH WOOD Measurements Intervals [place] Rate: 90 P: 57 NE: 144 QRS: 10 QRSD: 166 T: 116 QT: 383 QTc: 470 Interpretive Statements SINUS RHYTHM LEFT BUNDLE BRANCH BLOCK [120+ ms QRS DURATION, 80+ ms Q/S IN V1/V2, 85+ ms R IN I/aVL/V5/V6] Compared to ECG 10/03/2024 12:42:28 No significant changes Electronically Signed On 10-08-2024 21:52:50 CDT by HAMZAH WOOD [email or web address]
[2024-10-03] MEDS: acetaminophen 500 mg Tablet 1000 MG PO (19:36)
--- NOTE | 2024-10-03 19:40 | PM.HP ---
Providers/Chief Complaint Admitting Physician: Juanis Vera MD Primary Care Provider: Nellie Katz NP Chief Complaint: dizzy, nausea, possible medication reaction History of Present Illness Congressional Assistant: Dr. Laurel Girard in [place] Telemarketing Sales Representative: Dr. Huey Jones Daughter: Mirian Campoverde Daughter: Emily Villegas Yu Bruce is a 74 year old female w/ hx of ANCA vasculitis, CKDIV, likely chronic HFpEF, who presented on 10/03/2024 w/ complaints of head and neck pain and dizziness. The patient states that her neck has hurt for a couple of weeks, It worsened on Wednesday night 10/01, but not as bad as today. On Wednesday, the patient went to get a refill of her BP meds and they told her that they did not have her normal brand, and gave her a different brand of medication, which she took on Saturday 09/30 and 10/01/2024. When she got up on Sat to go to the bathroom around midnight, she noticed that she was very dizzy and found herself hanging on to things to get to the bathroom. During the day on Wednesday, the dizziness improved, but it did not resolve. She decided not to take her BP meds on Monday 10/02 because she was very dizzy and thought that her dizziness was due to the change in brands in BP meds. However, when she checked her BP this morning, it BP was 131/77 w/ a HR of 74. Based on the records that she brought, her BP normally runs 110s to 120s, and she is quite compliant with her medications. She endorses that she feels as if she if she is spinning. She endorses that she feels dizzy when she bends her head down or goes from supine to sitting position. SHe does not feel as dizzy when she turns her head from side to side. She felt nauseous yesterday when she felt dizzy, but she did not vomit. SHe denies otalgia, aural fullness, tinnitus, diplopia, blurry vision, rhinorrhea, nasal congestion. She endorses a few seconds of chest tightness and plapitations that occurred here in the ED. She endorses chronic SOB. She denies f/c. Her daughters say that she is always cold and has her house very warm at least 80degrees. 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 face and eye droops. In the ED, her vital signs were significant for elevated BP as high as 178/114 mmHg, and her heart rate were within normal limits. Her labs showed no leukocytosis, and her CMP showed a Cr of 1.8 (Cr ranges from 1.7 to 1.9). Her CT head and C-spine were done that were negative for any acute intracranial hemorrhage or acute C-spine fractures; however, it did show moderate cerebral and cerebellar atrophy with mild progression since 2019 as well as mild cervical spondylosis. She was given Hydralazine 10mg IVP x 1 and Labetalol 10mg IVP x 1. Per daughters, during administration of one of the IV antihypertensives, the patient's BP dropped, and there was she became unresponsive for 20 seconds, but quickly regained consciousness. While obtaining the HPI, many times during the interview, she closed her eyes due to feeling dizzy. Review of Systems Narrative: Constitutional: (-) fever(s), (-) chills, (-) body aches, (-) change in appetite, (-) change in weight, (-) fatigue, (+) malaise, (-) night sweats, (-) diaphoresis Eyes: (-) change in vision, (-) blurry vision, (-) diplopia, (-) floaters, ENT: (-) ear pain, (-) ear discharge, (-) aural fullness, (-) tinnitus, (-)nasal discharge, (-)nasal congestion, (-) post nasal drip, (-)dysphagia, (-)odynophagia, (-)hoarseness, Card: (+) Chest pain, (+) palpitations, (-) pedal edema, (-) orthopnea, (-) lightheadedness, (-) syncope, (-) pre-syncope, (-) leg pain with exertion Resp: (-) dyspnea, (-)dyspnea on exertion, (-) cough, (-) wheezing, (-) hemoptysis GI: (-) abdominal pain, (-) nausea, (-) vomiting, (-) hematemesis, (-) diarrhea, (-) constipation, (-) hematochezia, (-) melena : (-) flank pain, (-) dysuria, (-) hematuria, (-) urinary urgency, (-) urinary frequency, (-)oliguria, (-) difficulty voiding, (-) urinary incontinence, (-) urinary hesitancy, (-) dribbling, (-) nocturia, (-) genital pruritis, (-)vaginal odor, (-) vaginal discharge, (-) vaginal bleeding, (-) dysmenorrhea MSK: (-) myalgias, (-) arthralgias Skin/Breast: (-) rash, (-) sores, (+) new lesion on L parietal lobe for the last few months, (-) breast tenderness, (-) breast pain, or (-) nipple discharge Neuro: (+) occipital headaches, (+) dizziness, (-) generalized weakness, (-) weakness in the extremities, (-) numbness in extremities, (-) tingling, (-) frequent falls, (-) Slurred speech present, (-) seizure-like activity Psych: (-) anxiety, (-) depression, (-)paranoia, (-) visual hallucinations, (-) auditory hallucinations, (-)tactile hallucinations, (-) suicidal ideation, (-) homicidal ideation Endo: (-) polyuria, (-) polydipsia, (-) polyphagia, (+)cold intolerance, (-) heat intolerance Heme/Lymph: (+) easy bruising, (+) easy bleeding, (-) petechiae, (-) purpura, (-) enlarged lymph nodes, (-) tender lymph nodes Allergy/Immunlogy: (-) food intolerance, (-) hives/urticaria, (-) itchy/watery eyes, (-) tongue/throat swelling, (-) facial swelling, Medications/Allergies Home Medications ?Medication ?Instructions ?Recorded ?Confirmed ?Last Taken ?Type allopurinol 100 mg tablet 100 mg PO DAILY 08/02/20 10/03/24 10/03/24 History aspirin 325 mg tablet 325 mg PO DAILY 08/02/20 10/03/24 10/03/24 History levothyroxine 50 mcg capsule 50 mcg PO DAILY 08/02/20 10/03/24 10/03/24 History pantoprazole 40 mg tablet,delayed 40 mg PO DAILY 08/02/20 10/03/24 10/03/24 History release furosemide 40 mg tablet 40 mg PO DAILY 10/06/21 10/03/24 10/03/24 History carvedilol 6.25 mg tablet 6.25 mg PO BID 30 days #60 tabs 11/23/22 10/03/24 10/03/24 Rx nitroglycerin 0.4 mg sublingual 0.4 mg sublingual Q5M PRN chest 11/26/22 10/03/24 Unknown Rx tablet (Nitrostat) pain #90 tabs isosorbide mononitrate 120 mg 120 mg PO DAILY #90 tabs 10/03/24 Unknown Rx tablet,extended release 24 hr Allergies Allergy/AdvReac Type Severity Reaction Status Date / Time No Known Allergies Allergy Verified 05/03/24 10:00 PFSH Acute PFSH: Medical History Hx of cardiomyopathy Hx of congestive heart failure Bruit of left carotid artery History of back pain Hx of carpal tunnel syndrome Hx of chronic kidney disease Hx of diplopia Glomerulonephritis Hx of gout Maranda Brady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 Hx of hypercholesterolemia History of hypertension History of hypothyroidism Hx of insomnia Hx of left bundle branch block Hx of mitral valve insufficiency History of renal insufficiency Family hx of hypertension Family history of heart disease History of shingles Surgical History Hx of cholecystectomy Hx of mitral valve repair History of open heart surgery Family History Mother CAD (coronary artery disease) Hypertension Father Hypertension Cancer Denies family history of Diabetes Clotting disorder Dementia Chronic kidney disease (CKD) Suicide Anesthesia complication Bleeding disorder Lung disease Stroke Social History Smoking and tobacco/nicotine status: never used tobacco/nicotine Second hand smoke exposure: Yes Alcohol intake: never Substance/Drug Use: never Lives independently: Yes Household members: spouse Marital status: service: No Current occupational status: retired Pets and animals: No Do you think of yourself as: Straight/Heterosexual Current gender identity: Female Vitals/I&O/Wt Last Vital Signs Temp 97.8 F 10/03/24 11:20 Pulse 87 10/03/24 18:00 Resp 19 H 10/03/24 18:00 BP 157/95 10/03/24 18:00 Pulse Ox 93 10/03/24 18:00 O2 Del Method Room Air 10/03/24 11:20 Weight last 48 hrs Weight 104.326 kg Physical Exam Narrative: Constitutional: GENERAL APPEARANCE: cooperative, comfortable; HENT: HEAD & SCALP: normocephalic and atraumatic; NOSE: external nose not normal EXTERNAL EAR: no external ears normal MOUTH: Normal oral and palatal mucosa present THROAT: posterior oropharynx normal Eye: PERRL, EOMI, normal conjunctiva b/l Neck: normal visual inspection, trachea midline, No anterior neck swelling, No tracheal deviation, no submandibular swelling, Thyroid normal , cervical ROM normal Lymph: no cervical, supraclavicular LAD Resp: no use of accessory muscles, CTAB, no w/r/r Cardio: RRR. I actually do not appreciate any no m/r/g, or clicks on exam. 2+ radial and DP pulses. GI: normoactive bowel sounds, non-tender, non-distended, no guarding, no rigidity, no rebound tenderness, no hepatosplenomegaly. : (-) Pablo in place draining urine, (-) CVA tenderness Back/Pelvis: Deferred Extremity: No clubbing, No cyanosis and No edema Neuro: AO to person, place and time. CN normal except as noted. Normal gait present. 5/5 motor strength present throughout. Normal motor muscle tone present throughout. No tremor noted. No motor abnormalities present. No motor fasciculations present Psych: APPEARANCE: Yes grossly normal ATTITUDE: Yes calm and Yes engaged ACTIVITY/MOTOR BEHAVIOR: Yes appropriate eye contact SPEECH: Yes normal speech MOOD & AFFECT: Yes euthymic mood THOUGHT PROCESS: Normal thought process present THOUGHT CONTENT: Yes Normal thought content present ATTENTION/CONCENTRATION: Yes attention grossly intact MEMORY/COGNITION: Yes memory grossly intact Data 10/03/24 12:06 10/03/24 12:06 A&P Assessment and plan (1) Vertigo: (2) Accelerated hypertension: Plan #Dizziness #Suboccipital Headache: - Concern for Central vs Peripheral Vertigo (BPPV) - Ordered MRI head to evaluate for CVA - She may need a Neurology consult. #L. parietal scalp lesion - Consider referral to dermatology on discharge #HTN - Resume home meds gradually. #chronic HFpEF #Hx of mitral valve repair #severe Pulmonary Hypertension w/ severe tricuspid valve regurg - resume daily Furosemide. She normally takes furosemide daily unless she eats something salty, then she takes Furosedmide BID, per instructions from her Telemarketing Sales Representative. 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 - Resume home furosemide. #Hx of ANCA vasculitis - No acute issues at this time. #Hypothyroidism #GERD #Gout - Resume home meds. #Insomnia - Ordered Trazodone prn. DVT ppx: Lovenox PDMP PDMP Reviewed: Not Reviewed Attestations Medical Necessity Statement*: The patient needs to be hospitalized for greater than 2 midnights for her dizziness with my primary concern being for a central vertigo due to a stroke. Premature discharge will result in further deterioration in her health. Time Spent in Patient Care: >75mins was spent on chart review, interviewing the patient and her daughters, examining the patient, reviewing labs, images, formulating the plan and communicating it to the patient. Coding Level of Care Code 77211 High Time for a total of 75 minutes, includes reviewing past or interval history, examining/interviewing patient, placing orders, counseling patient/family/other support, updating patient/family/other support, discussing plan of care with staff, communicating with other healthcare providers, documenting encounter and coordinating care Diagnoses Vertigo R42 Accelerated hypertension I10
[2024-10-03 19:55] LABS: Troponin(5th) Baseline 28 ng/L (0-10)
[2024-10-03] MEDS: carvedilol 6.25 mg Tablet PO (21:08)
--- OUTSIDE RECORDS SUMMARY | 2024-10-03 22:28 | XMS_ITS | Continuity of Care Document ---
Author Organization [facility] Address [id number] [address] Phone Care Team Providers Care Supply Technician Name Role Phone Jovi Aguirre MD Unavailable Unavailable Medications Medication Instructions Dosage Effective Dates (start - stop) Status Comments Cipro 500 mg Tab SI TAB orally every 12 hours for 14 day(s) - Active SPIRONOLACTONE (unknown strength) SI tab(s) orally once a day Not Available - Active ASPIRIN (unknown strength) SIG: orally once a day Not Available - Active Altace 5 mg Cap SI cap(s) orally once a day - Active Coreg 6.25 mg Tab SI tab(s) orally 2 times a day - Active potassium chloride SR 10 mEq Cap SI tab(s) orally once a day - Active simvastatin 10 mg Tab SI tab(s) orally once a day (at bedtime) - Active furosemide 40 mg Tab SI tab(s) orally once a day - Active Procedures Procedure Date EST-PROB FOC/STR FORWARD NEW-DETAIL/LOW COMPLEXITY Advance Directives Directive Yes / No Effective Date File Name No Information Encounters Encounter Description Practice Location Reason(s) For Visit Diagnoses Date Provider Providers Copied on Encounter [facility], [id number]- [facility], [place], [place], [id number], [place] tel:[phone] Family Medicine F1 No Information 0 6-200 7 Timothy Espana. [address] [facility], [place], [place], [id number], [place]. tel:[phone] EST-PROB FOC/STR FORWARD [facility], [id number]- [facility], [place], [place], [id number], [place] tel:[phone] Family Medicine F1 No Information No Information NEW-DETAIL/L OW COMPLEXITY [facility], [id number]- [facility], [place], [place], [id number], [place] tel:[phone] Family Medicine F1 Other and unspecified hyperlipidemiaCel lulitis and abscess of leg, except footUnspecified systolic heart failureMitral valve disorders No Information Family History Family Member Type Diagnosis Age At Onset No Information Payers Payer name Insurance type Covered libertarian ID Authoriza tion(s) No Information Social History Type Description Quantity Date Captured Comments Sex Female Smoking Status No Information Chief Complaint And Reason For Visit No Information Reason For Referral Reason For Referral No Information History Of Present Illness Encounter Date Complaint History Of Prese nt Illness No Information Functional Status Date Functional Assessmen t No Information Instructions Date Instruction Additional Infor mation No Information Assessments Type Assessment Date No Information Patient Care Teams Name Effective Dates (start - stop) Status Members No Information
[2024-10-03 22:42] LABS: Troponin 5 2HR 29.99 ng/L (0-10); Troponin 5 2HR Delta 1.99 ABS# (0-10)
[2024-10-03] MEDS: enoxaparin 30 mg/0.3 mL Syringe SUBCUT (23:28)
[2024-10-04] VITALS (8 sets, daily range): BP systolic 100–133; BP diastolic 66–85; PULSE 78–91; RESP 16–18; TEMP 36.3–36.8; O2SAT 90–94
--- NOTE | 2024-10-04 00:43 | ECG_ITS ---
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
[2024-10-04] MEDS: aspirin 81 mg Chew Tablet 324 MG PO (00:47)
[2024-10-04 01:48] LABS: Basophils # 0.1 10^3/uL (0.0-0.1); Basophils % 0.7 %; Eosinophils # 0.1 10^3/uL (0.0-0.8); Eosinophils % 1.2 %; Hematocrit 38.8 % (36-47); Lymphocytes # 1.8 10^3/uL (0.8-4.8); Lymphocytes % 23.2 %; Mean Corpuscular HGB Conc 31.7 g/dL (30-55); Mean Corpuscular Hemoglobin 29.4 pg (27-33); Mean Corpuscular Volume 92.6 fl (85-98); Mean Platelet Volume 14.1 fL (7.4-10.4); Monocytes # 0.8 10^3/uL (0.2-0.9); Monocytes % 11.1 %; Neutrophils # 4.79 10^3/uL (1.8-7.7); Neutrophils % 63.5 %; Nucleated Red Blood Cells % 0 %; Platelet Count 127 10^3/cmm (157-399); Red Blood Count 4.19 10^6/uL (3.85-5.65); Red Cell Distribution Width 13.2 % (12.1-15.1); White Blood Count 7.54 10^3/uL (3.29-11.43)
[2024-10-04 02:12] LABS: Troponin 5 6HR 30.35 ng/L (0-10); Troponin 5 6HR Delta 2.35 ng/L (0-12)
[2024-10-04 02:13] LABS: Alanine Aminotransferase 9 U/L (0-33); Alkaline Phosphatase 81 U/L (35-105); Aspartate Amino Transferase 18 U/L (0-32); Blood Urea Nitrogen 51 mg/dL (8-23); Calcium 9.6 mg/dL (8.5-10.5); Carbon Dioxide 28 mmol/L (22-29); Chloride 100 mmol/L (98-107); Creatinine Clr Calc Pharmacy 30.6051; Globulin 2.4 g/dL (1.3-4.6); Glucose 120 mg/dL (65-115); Magnesium 2.1 mg/dL (1.7-2.3); Osmolality Calculated 303 mOsm/kg (285-295); Phosphorus 3.5 mg/dL (2.5-4.5); Sodium 139 mmol/L (136-145); Total Bilirubin 0.4 mg/dL (0.15-1.2); Total Protein 6.4 g/dL (6.6-8.7)
[2024-10-04] MEDS: pantoprazole DR 40 mg Tablet PO (05:30)
[2024-10-04] MEDS: allopurinol 100 mg Tablet PO (09:01)
[2024-10-04] MEDS: FUROsemide 40 mg Tablet PO (09:01)
[2024-10-04] MEDS: carvedilol 6.25 mg Tablet PO ×2 (09:01→18:22)
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
--- NOTE | 2024-10-04 16:56 | P.PN_ITS ---
Subjective 2 Subjective: Patient states dizziness is slightly better today but still persisting. Vitals/I&O/Wt Last Vital Signs Temp 98.0 F 10/04/24 15:57 Pulse 91 10/04/24 15:57 Resp 17 10/04/24 15:57 BP 133/85 10/04/24 15:57 Pulse Ox 93 10/04/24 15:57 O2 Del Method Room Air 10/04/24 15:57 10/04/24 10/04/24 10/04/24 06:59 14:59 22:59 Intake Total 360 / 360 Balance 360 / 360 Weight last 48 hrs Weight 98.021 kg Weight 104.326 kg Weight 104.326 kg Physical Exam 2 Narrative: General: No acute distress, AO x3 HEENT: PERRLA, pupils bilaterally equal and reactive, pallors not present Chest: Normal vesicular breath sounds, no added sounds, equal good air entry bilaterally CVS: S1-S2 regular, no murmurs, no tachycardia, no gallops, no rubs Abdomen: Soft, nontender, no organomegaly, bowel sounds present Neuro: No focal deficits, no facial deformity, AO x3, power 5/5 in all limbs Data 10/04/24 01:27 10/04/24 01:27 A&P Assessment and plan (1) Vertigo: (2) Accelerated hypertension: Plan #Dizziness #Suboccipital Headache: - Concern for Central vs Peripheral Vertigo (BPPV) - Ordered MRI head to evaluate for CVA - She may need a Neurology consult. #L. parietal scalp lesion - Consider referral to dermatology on discharge #HTN - Resume home meds gradually. #chronic HFpEF #Hx of mitral valve repair #severe Pulmonary Hypertension w/ severe tricuspid valve regurg - resume daily Furosemide. She normally takes furosemide daily unless she eats something salty, then she takes Furosedmide BID, per instructions from her Adjuster Electrical Contacts. 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 - Resume home furosemide. #Hx of ANCA vasculitis - No acute issues at this time. #Hypothyroidism #GERD #Gout - Resume home meds. #Insomnia - Ordered Trazodone prn. DVT ppx: Lovenox October 04, 2024 Patient states that her dizziness is better today but still persisting. Further evaluation with Lamont-Hallpike maneuver, Carrie's if indicated. Physical therapy evaluation for the same. Patient has pacemaker leads in place placed in 2005 at an outside facility. She stated that the generator was never connected as it was on backorder at that time. Since then she has not needed a pacemaker however the leads placed at that time remain in place. It is not connected to any other device. MRI has informed us that they will be unable to perform the study due to presence of these leads. Discussed with the patient to perform a CTA of the head and neck instead however patient declined this intervention due to risk of RAS in a background of CKD. Review of chart shows patient is on aspirin 325 mg p.o. daily, we will continue the same. She would be amenable to having an MRI done as outpatient at a higher center where the leads would be compatible.Trial of meclizine PDMP PDMP Reviewed: Not Reviewed Attestations 2 Medical Necessity Statement*: Pt assesment today, unable to get MRI or CT Coding Level of Care Code Acute Code for Chg Fwd Diagnoses Vertigo R42 Accelerated hypertension I10
[2024-10-04] MEDS: enoxaparin 30 mg/0.3 mL Syringe SUBCUT (21:41)
[2024-10-04] MEDS: meclizine 25 mg tablet PO (21:41)
[2024-10-05] VITALS: BP 127/84; PULSE 83; RESP 20; TEMP 36.7; O2SAT 93
[2024-10-05] MEDS: acetaminophen 325 mg Tablet 650 MG PO (01:24)
[2024-10-05 04:00] VITALS: BP 111/68; PULSE 66; RESP 18; TEMP 36.4; O2SAT 92
[2024-10-05] MEDS: pantoprazole DR 40 mg Tablet PO (05:09)
[2024-10-05 05:57] LABS: Basophils # 0.1 10^3/uL (0.0-0.1); Eosinophils # 0.2 10^3/uL (0.0-0.8); Eosinophils % 3.4 %; Hematocrit 38.1 % (36-47); Lymphocytes # 2.1 10^3/uL (0.8-4.8); Lymphocytes % 35.2 %; Mean Corpuscular Hemoglobin 30.3 pg (27-33); Mean Corpuscular Volume 94.8 fl (85-98); Monocytes # 0.7 10^3/uL (0.2-0.9); Neutrophils % 48.2 %; Nucleated Red Blood Cells % 0 %; Platelet Count 125 10^3/cmm (157-399); Red Blood Count 4.02 10^6/uL (3.85-5.65); Red Cell Distribution Width 13.2 % (12.1-15.1); White Blood Count 5.82 10^3/uL (3.29-11.43)
[2024-10-05 06:00] VITALS: PULSE 70
[2024-10-05 06:18] LABS: Blood Urea Nitrogen 59 mg/dL (8-23); Calcium 8.8 mg/dL (8.5-10.5); Carbon Dioxide 26 mmol/L (22-29); Chloride 102 mmol/L (98-107); Creatinine Clr Calc Pharmacy 23.0477; Glucose 89 mg/dL (65-115); Osmolality Calculated 304 mOsm/kg (285-295); Phosphorus 4.2 mg/dL (2.5-4.5); Sodium 139 mmol/L (136-145)
[2024-10-05 07:35] VITALS: BP 107/67; PULSE 76; RESP 15; TEMP 36.5; O2SAT 92
[2024-10-05] MEDS: meclizine 25 mg tablet PO (08:17)
[2024-10-05] MEDS: allopurinol 100 mg Tablet PO (08:17)
[2024-10-05] MEDS: sennosides 8.6 mg Tablet 17.2 MG PO (08:17)
[2024-10-05] MEDS: FUROsemide 40 mg Tablet PO (08:17)
[2024-10-05] MEDS: carvedilol 6.25 mg Tablet PO (08:17)
[2024-10-05] MEDS: docusate sodium 100 mg Capsule 200 MG PO (08:17)
--- OUTSIDE RECORDS SUMMARY | 2024-10-05 08:24 | XMS_ITS | Continuity of Care Document ---
Author Organization [facility] Address [address] [id number][place] [address] Phone Care Team Providers Care Manager Behavioral Name Role Phone Jovi Aguirre MD Unavailable [...] Diagnoses Date Provider Providers Copied on Encounter [facility], [id number]- [facility], [place], [place], [id number], [place] tel:[phone] Family Medicine F1 No Information 0 6-200 7 Timothy Espana. [address] [facility], [place], [place], [id number], [place]. tel:[phone] EST-PROB FOC/STR FORWARD [facility], [id number]- [facility], [place], [place], [address], [place] tel:[phone] Family Medicine F1 No Information No Information NEW-DETAIL/L OW COMPLEXITY [facility], [id number]- [facility], [place], [place], [address], [place] tel:[phone] Family Medicine F1 Other and unspecified hyperlipidemiaCel [...]
--- NOTE | 2024-10-05 09:54 | PC.CHAP ---
Pastoral Care Encounter/Spiritual Assessment Type of Contact [] Declined drop board man visit [] Patient/Family/Request visit [] Outpatient visit [] Follow-up visit [] Physician referral [] Code/Alert [x] Routine visit [] Staff referral [] Actively dying [] Patient sleeping [x] Family support [] [] Out of room [] Palliative care [] [] Receiving care in room [] Pre-surgical visit [] Trauma [] Long length of stay [] ICU visit [] Other: Relational/Emotional Strength [x] Patient feels connected with others/family/visitors/staff [] Distress [] Loneliness/isolation [] Abandonment Spirituality of Patient [x] Person of [place] [] Attends Faith of their [place] [x] Believes in Prayer [] Reads Bible or Hoahaoism materials [] There are Spiritual issues to be addressed Septic Tank Installer Interventions [x] Prayer [x] Active listening [] Non-anxious presence [x] Spiritual/emotional support [] Crisis/trauma care [] Spiritual counseling [] Bereavement support [] Provided bereavement packet [] Provided Bible/devotional materials [] Provided toy/stuffed animal, coloring book to patient or family member [] Provided Communion [] Anointing/[place] [] Salvation [x] Completed spiritual assessment [] Other: Impact on Illness or Injury [] Angry [] Fearful [] Anxious [] Often cries [] Exhaustion [] Unable to work [] Unable to attend pentecostal [] Unable to walk/stand [] Unable to read [] Unable to drive [] Unable to eat/drink [] Unable to sleep [] Unable to be with family [] Patient intubated [] Other: Summary Time spent with patient 5 ccmin
[2024-10-05 11:13] VITALS: BP 113/70; PULSE 60; RESP 16; TEMP 36.4; O2SAT 94
--- NOTE | 2024-10-05 14:56 | P.DS_ITS ---
Discharge Providers Date of Admission: 10/03/24 19:54 Date of Discharge: October 05, 2024 Attending Provider at Admission: Juanis Vera MD Attending Provider at Discharge: Lisa Michel MD Primary Care Provider: Nellie Katz NP Diagnoses at Discharge Discharge Diagnosis (1) Vertigo: Status: Acute (2) Accelerated hypertension: Status: Acute Reason for Visit Reason for Visit: dizzy, nausea, possible medication reaction Hospital Course Hospital Course Yu Bruce is a 74 year old female w/ hx of ANCA vasculitis, CKDIV, likely chronic HFpEF, who presented on 10/03/2024 w/ complaints of head and neck pain and dizziness. She endorses that she feels as if she if she is spinning. She endorses that she feels dizzy when she bends her head down or goes from supine to sitting position.In the ED, her vital signs were significant for elevated BP as high as 178/114 mmHg, and her heart rate were within normal limits. Her labs showed no leukocytosis, and her CMP showed a Cr of 1.8 (Cr ranges from 1.7 to 1.9). Her CT head and C-spine were done that were negative for any acute intracranial hemorrhage or acute C-spine fractures; however, it did show moderate cerebral and cerebellar atrophy with mild progression since 2019 as well as mild cervical spondylosis. She was given Hydralazine 10mg IVP x 1 and Labetalol 10mg IVP x 1 following which her blood pressure has remained well- controlled. An MRI was attempted to rule out posterior circulation stroke, however was declined by MRI department due to presence of pacemaker leads from the past. Patient is not currently connected to a pacemaker. A prescription has been provided to her to consider MRI as an outpatient had a higher center after follow-up with her primary care physician. Patient was started on an empiric trial of meclizine due to concern for BPPV. She reported some improvement in her dizziness with initiation of meclizine. Physical therapy evaluation was also sought to perform Carrie's maneuver to both sides. Each time vertigo symptoms were elicited, right was worse than the left. She was also noted to have palpatory pain and tension in the right upper cervical area which corrected by about 50% after strain counterstrain and manual cervical traction. Outpatient PT is recommended and a referral has been generated for the same. Incidentally her creatinine trended up to 2.3 on day of discharge. No other obviously nephrotoxic medications were noted on her MAR with the exception of Lasix. Patient was clinically euvolemic. Dose of Lasix was reduced to 40 mg every other day and patient was recommended to follow-up with her primary care physician for a repeat creatinine check early next week. Physical Exam Narrative: General: No acute distress, AO x3 HEENT: PERRLA, pupils bilaterally equal and reactive, pallors not present Chest: Normal vesicular breath sounds, no added sounds, equal good air entry bilaterally CVS: S1-S2 regular, no murmurs, no tachycardia, no gallops, no rubs Abdomen: Soft, nontender, no organomegaly, bowel sounds present Neuro: No focal deficits, no facial deformity, AO x3, power 5/5 in all limbs Discharge Data Studies Completed and Pending Completed Studies During Hospitalization Category Date Time Status CT cervical spin wo con* [id number] Stat Cat Scan 10/03/24 15:[address] head wo con* [id number] Stat Cat Scan 10/03/24 15:03 Completed Pending at discharge Category Date Time Status Basic Metabolic Panel AM LABS Lab 10/06/24 04:00 Ordered Complete Blood Count w/Auto AM LABS Lab 10/06/24 04:00 Ordered Magnesium AM LABS Lab 10/06/24 04:00 Ordered Phosphorus AM LABS Lab 10/06/24 04:00 Ordered Radiology Impressions Head CT 10/03/24 15:03 IMPRESSION: 1. No acute intracranial hemorrhage or edema. 2. Moderate cerebral and cerebellar atrophy with mild progression since 2018. 3. No skull fracture. Cervical Spine CT 10/03/24 15:37 IMPRESSION: No acute cervical spine fracture. Mild cervical spondylosis. Laboratory Results WBC 5.82 10^3/uL (3.29-11.43) 10/05/24 05:33 RBC 4.02 10^6/uL (3.85-5.65) 10/05/24 05:33 Hgb 12.20 g/dL (11.27-16.99) 10/05/24 05:33 Hct 38.1 % (36-47) 10/05/24 05:33 MCV 94.8 fl (85-98) 10/05/24 05:33 MCH 30.3 pg (27-33) 10/05/24 05:33 MCHC 32.0 g/dL (30-55) 10/05/24 05:33 RDW 13.2 % (12.1-15.1) 10/05/24 05:33 Plt Count 125 10^3/cmm (157-399) L 10/05/24 05:33 MPV Not Reportable 10/05/24 05:33 Neut % (Auto) 48.2 % 10/05/24 05:33 Lymph % (Auto) 35.2 % 10/05/24 05:33 [place] % (Auto) 12.0 % 10/05/24 05:33 Eos % (Auto) 3.4 % 10/05/24 05:33 Baso % (Auto) 1.0 % 10/05/24 05:33 Neut # (Auto) 2.80 10^3/uL (1.8-7.7) 10/05/24 05:33 Lymph # (Auto) 2.1 10^3/uL (0.8-4.8) 10/05/24 05:33 [place] # (Auto) 0.7 10^3/uL (0.2-0.9) 10/05/24 05:33 Eos # (Auto) 0.2 10^3/uL (0.0-0.8) 10/05/24 05:33 Baso # (Auto) 0.1 10^3/uL (0.0-0.1) 10/05/24 05:33 Nucleated RBC % (auto) 0 % 10/05/24 05:33 Nucleated RBCs # 0.0 /100WBC 10/05/24 05:33 PT 12.00 SECONDS (12.1-14.9) L 10/03/24 12:06 INR 0.83 (0.8-1.2) 10/03/24 12:06 Sodium 139 mmol/L (136-145) 10/05/24 05:33 Potassium 4.0 mmol/L (3.5-5.1) 10/05/24 05:33 Chloride 102 mmol/L (98-107) 10/05/24 05:33 Carbon Dioxide 26 mmol/L (22-29) 10/05/24 05:33 Anion Gap 15.0 (5-19) 10/05/24 05:33 BUN 59 mg/dL (8-23) H 10/05/24 05:33 Creatinine 2.3 mg/dL (0.5-0.9) H 10/05/24 05:33 GFR Calculation Not Reportable 10/05/24 05:33 Glucose 89 mg/dL (65-115) 10/05/24 05:33 Calculated Osmolality 304 mOsm/kg (285-295) H 10/05/24 05:33 Calcium 8.8 mg/dL (8.5-10.5) 10/05/24 05:33 Phosphorus 4.2 mg/dL (2.5-4.5) 10/05/24 05:33 Magnesium 2.0 mg/dL (1.7-2.3) 10/05/24 05:33 Total Bilirubin 0.4 mg/dL (0.15-1.2) 10/04/24 01:27 AST 18 U/L (0-32) 10/04/24 01:27 ALT 9 U/L (0-33) 10/04/24 01:27 Alkaline Phosphatase 81 U/L (35-105) 10/04/24 01:27 Troponin T Baseline 28 ng/L (0-10) H 10/03/24 19:17 Troponin T 120 Minute 29.99 ng/L (0-10) H 10/03/24 22:10 Delta Troponin T 1.99 ABS# (0-10) 10/03/24 22:10 Troponin T Hi Sens 6Hr 30.35 ng/L (0-10) H 10/04/24 01:27 Troponin T Hi Sens 6Hr Delta 2.35 ng/L (0-12) 10/04/24 01:27 Total Protein 6.4 g/dL (6.6-8.7) L 10/04/24 01:27 Albumin 4.0 g/dL (3.5-5.2) 10/04/24 01:27 Globulin 2.4 g/dL (1.3-4.6) 10/04/24 01:27 Vitals Last Vital Signs Temp 97.6 F 10/05/24 11:13 Pulse 60 10/05/24 11:13 Resp 16 10/05/24 11:13 BP 113/70 10/05/24 11:13 Pulse Ox 94 10/05/24 11:13 O2 Del Method Room Air 10/05/24 11:13 Discharge Plan Discharge Patient Disposition: Home Condition: Stable Prescriptions: New meclizine 25 mg Tablet 25 mg PO TID PRN (Reason: dizziness) 15 Days Qty: 45 0RF Continued allopurinol 100 mg tablet 100 mg PO DAILY aspirin 325 mg tablet 325 mg PO DAILY levothyroxine 50 mcg capsule 50 mcg PO DAILY pantoprazole 40 mg tablet,delayed release (DR/EC) 40 mg PO DAILY carvedilol 6.25 mg tablet 6.25 mg PO BID 30 Days Qty: 60 5RF Rx Instructions: must administer with a meal/food nitroglycerin [Nitrostat] 0.4 mg tablet, sublingual 0.4 mg sublingual Q5M PRN (Reason: chest pain) Qty: 90 0RF Rx Instructions: do not exceed 3 doses per episode isosorbide mononitrate 120 mg tablet extended release 24 hr 120 mg PO DAILY Qty: 90 2RF Changed furosemide 40 mg tablet 40 mg PO EVERY OTHER DAY 15 Days Qty: 0 0RF Patient Comments: Dr Pelaez cut it back to once daily Discharge Orders: Discharge Order (Routine); Ordered 10/05/24 Ordered By: Lisa Michel Other Ambulatory Orders: DME: Ed (Order) Location: None Selected Ordered By: Lisa Michel Comprehensive Metabolic Panel (Routine) Timeframe: 3 Days Location: Determined by Patient Ordered By: Lisa Michel MR head wo con* [id number] (Routine) Timeframe: 1 Week Location: Determined by Patient Ordered By: Lisa Michel Referrals: [facility] - [facility] [Provider Group] - 7-10 days (We have notified your physician's clinic of the need for a follow-up appointment to be scheduled. If you have not heard from them within the next 2 business days, please call them directly. ) Nellie Katz NP [Primary Care Provider] - 10/09/24 11:30 am (hospital discharge follow up- needs repeat creatinine and outpatient MRI ) Discharge Diet: Usual diet Discharge Activity: Resume usual activity Patient Instructions: Meclizine (By mouth), Vertigo (GEN), Opioid Safety Discharge Attestations Time Spent in Discharge Care*: greater than 30 min Quality Metrics Clinical Quality Measures [ No reported AMI, CVA or VTE this stay] Coding Level of Care Code Acute Code for Chg Fwd Diagnoses Vertigo R42 Accelerated hypertension I10
[2024-10-05 15:27] VITALS: BP 113/70; PULSE 60; RESP 16; TEMP 36.4; O2SAT 94
== END 2024-10-05 14:30 | disposition home or self-care (01) ==
LOC: ER 20:02 → MEDSURG 22:29
PROVIDERS: Emergency Medicine; Family Medicine; Admitting Provider Internal Medicine; Emergency Provider Emergency Medicine; PCP Nurse Practitioner Family; Visit Provider Student in an Organized Health Care Education/Training Program
DX: I12.0 Hypertensive chronic kidney disease with stage 5 chronic kidney disease or end stage renal disease (principal); N18.4 Chronic kidney disease, stage 4 (severe); I50.30 Unspecified diastolic (congestive) heart failure; R42 Dizziness and giddiness; Z79.82 Long term (current) use of aspirin; K21.9 Gastro-esophageal reflux disease without esophagitis; Z86.79 Personal history of other diseases of the circulatory system; R01.1 Cardiac murmur, unspecified; Z82.49 Family history of ischemic heart disease and other diseases of the circulatory system; Z57.31 Occupational exposure to environmental tobacco smoke; I44.7 Left bundle-branch block, unspecified; E03.9 Hypothyroidism, unspecified; E78.5 Hyperlipidemia, unspecified; G47.00 Insomnia, unspecified; L98.8 Other specified disorders of the skin and subcutaneous tissue
CPT/HCPCS: 36415; 70450; 72125; 80048; 80053; 83735; 84100; 84484; 85025; 85610; 93005; 96372; 96374; 96375; 97110; 97140; 97161; 99285; G0378; J0360; J1650; J3490; J8597; J9999

== ENCOUNTER → 2024-11-01 09:48 | Outpatient (BNVA) | payer MEDICARE, SELFPAY | PROVIDERS: PCP Nurse Practitioner Family; Visit Provider Nurse Practitioner Family | DX: I13.0 Hypertensive heart and chronic kidney disease with heart failure and stage 1 through stage 4 chronic kidney disease, or unspecified chronic kidney disease (principal); N18.9 Chronic kidney disease, unspecified; I50.9 Heart failure, unspecified; I42.8 Other cardiomyopathies; M25.473 Effusion, unspecified ankle; Z79.82 Long term (current) use of aspirin | CPT/HCPCS: 36415; 80053 ==

== ENCOUNTER 2024-11-07 08:12 | Outpatient (RCR) | payer MEDICARE, SELFPAY | END 2024-11-07 08:13 | disposition home or self-care (01) | LOC: SPT 08:12 | PROVIDERS: PCP Nurse Practitioner Family; Visit Provider Nurse Practitioner Family | DX: R42 Dizziness and giddiness (principal) | CPT/HCPCS: 95992 ==

== ENCOUNTER → 2025-05-08 13:43 | Outpatient (BNVA) | payer MEDICARE, SELFPAY | PROVIDERS: PCP Nurse Practitioner Family; Visit Provider Internal Medicine Cardiovascular Disease | DX: I36.1 Nonrheumatic tricuspid (valve) insufficiency (principal); I42.9 Cardiomyopathy, unspecified; I10 Essential (primary) hypertension; I27.20 Pulmonary hypertension, unspecified; Z98.890 Other specified postprocedural states; Z79.82 Long term (current) use of aspirin | CPT/HCPCS: 99214 ==